=== PATIENT | male | born 1975 | race Caucasian/White ===

== ENCOUNTER → 2017-01-19 | Outpatient (CLI) | payer BC ==
[~2017-01-19] VITALS: Ht 188 cm; Wt 81.6 kg
[~2017-01-19] MED LIST: ENSURE113 GM PO; PREDNISONE 10 M10 MG PO
[2017-01-19 10:44] LABS: HEMOGLOBIN 15.7 gm/dl (14.0-17.5); RED BLOOD COUNT 4.68 M/UL (4.20-5.50); WHITE BLOOD COUNT 7.9 K/UL (4.5-11.0)
[2017-01-19 11:02] LABS: BUN/CREATININE RATIO 17 (0-10)
== END ==
LOC: OPSV 10:00
PROVIDERS: Internal Medicine Gastroenterology
DX: K51.90 Ulcerative colitis, unspecified, without complications (principal)
CPT/HCPCS: 36415; 80053; 85025; 86140; 96375; 96413; 96415; J1720; J1745; Q0163

== ENCOUNTER → 2017-03-14 | Outpatient (CLI) | payer BC ==
[~2017-03-14] VITALS: Ht 188 cm; Wt 81.6 kg
[2017-03-14 14:16] LABS: HEMOGLOBIN 15.7 gm/dl (14.0-17.5); RED BLOOD COUNT 4.73 M/UL (4.20-5.50); WHITE BLOOD COUNT 5.7 K/UL (4.5-11.0)
[2017-03-14 14:45] LABS: BUN/CREATININE RATIO 24 (0-10)
== END ==
LOC: OPSV 12:58
PROVIDERS: Internal Medicine Gastroenterology
DX: K51.90 Ulcerative colitis, unspecified, without complications (principal)
CPT/HCPCS: 36415; 80053; 85025; 86140; 96375; 96413; 96415; J1720; J1745; Q0163

== ENCOUNTER → 2020-11-04 | Outpatient (CLI) | payer BC, OTHER ==
[~2020-11-04] MED LIST changes: +ASPIRIN EC81 MG PO; +CLARITIN10 M2 PO; +CLINDAMYCIN HC300 MG PO; +DECADRON0.5 MG PO; +DEXAMETHASONE0.5 M1 PO; +DOXYCYCLINE HY100 MG PO; +ELIQUIS5 MG PO; +FERROUS SULFAT325 MG PO; +FISH OIL 1,0001 EAC1 PO; +FLORINEF 0.1 M0.1 MG PO; +FOLIC ACID1 MG PO; +FUROSEMIDE20 MG PO; +HYDROCODON-ACE1 EAC4 PO; +K-DUR TAB 10 M10 MEQ PO; +KEFLEX CAP 500500 MG PO; +LEVOFLOXACIN500 MG PO; +LOPRESSOR 25 MG25 MG PO; +METHOTREXA25 MG/1 M4 INJ; +MIDODRINE HCL5 MG PO; +ONDANSETRON ODT4 MG PO; +PAIN RELIEVER325 MG PO; +PROAMATINE 2.52.5 MG PO; +SIMPONI100 MG/11 SQ; +STELARA90 MG/1 ML SQ; +VALACYCLOVIR1000 MG PO; +VITAMIN D21250 MCG PO; +VITAMIN D31250 MCG PO; +XELJANZ10 MG PO; +[UNRECOGNIZED DRUG - OTHER]
== END ==
LOC: HEART 5 09:14
DX: I49.3 Ventricular premature depolarization (principal); I50.42 Chronic combined systolic (congestive) and diastolic (congestive) heart failure; I42.0 Dilated cardiomyopathy; R06.02 Shortness of breath; I08.1 Rheumatic disorders of both mitral and tricuspid valves; R93.1 Abnormal findings on diagnostic imaging of heart and coronary circulation
CPT/HCPCS: 93306

== ENCOUNTER → 2020-11-10 | Outpatient (CLI) | payer BC, OTHER ==
[2020-11-10 11:27] LABS: RED BLOOD COUNT 4.97 M/UL (4.20-5.50); WHITE BLOOD COUNT 11.8 K/UL (4.5-11.0)
[2020-11-10 12:27] LABS: BUN/CREATININE RATIO 21 (0-10)
== END ==
LOC: LAB 10:44
PROVIDERS: Internal Medicine Gastroenterology
DX: K51.90 Ulcerative colitis, unspecified, without complications (principal)
CPT/HCPCS: 36415; 80053; 85025; 86140

== ENCOUNTER → 2021-01-26 | Outpatient (CLI) | payer BC, OTHER | LOC: EXRD 08:47 | DX: I20.8 Other forms of angina pectoris (principal); I47.2 Ventricular tachycardia; R06.02 Shortness of breath; R91.8 Other nonspecific abnormal finding of lung field | CPT/HCPCS: 71046 ==

== ENCOUNTER → 2021-01-28 | Outpatient (CLI) | payer BC, OTHER | LOC: CATH 08:25 | DX: R06.02 Shortness of breath (principal); I20.8 Other forms of angina pectoris; I47.2 Ventricular tachycardia; Z20.822 Contact with and (suspected) exposure to COVID-19 | CPT/HCPCS: 99152; C1769; C1894; J1644; J2250; J3010; J7030; Q9967 ==

== ENCOUNTER → 2021-02-11 | Outpatient (CLI) | payer BC, OTHER ==
[2021-02-11 12:05] LABS: HEMOGLOBIN 15.7 gm/dl (14.0-17.5); RED BLOOD COUNT 5.22 M/UL (4.20-5.50); WHITE BLOOD COUNT 10.8 K/UL (4.5-11.0)
[2021-02-11 12:22] LABS: BUN/CREATININE RATIO 14 (0-10)
== END ==
LOC: LAB 10:59
PROVIDERS: Internal Medicine Gastroenterology
DX: K51.90 Ulcerative colitis, unspecified, without complications (principal); T38.0X5A Adverse effect of glucocorticoids and synthetic analogues, initial encounter
CPT/HCPCS: 80053; 83993; 85025; 86140

== ENCOUNTER → 2021-02-24 | Outpatient (CLI) | payer BC, OTHER | LOC: KOH-I 11:23 | DX: R05 Cough (principal); R06.00 Dyspnea, unspecified | CPT/HCPCS: 71046 ==

== ENCOUNTER → 2021-02-28 | Outpatient (CLI) | payer BC, OTHER ==
[2021-03-03 05:09] LABS: QUANTIFERON MITOGEN VALUE >10.00 IU/mL (.); QUANTIFERON-TB GOLD PLUS Negative (Negative)
== END ==
LOC: LAB 14:45
PROVIDERS: Internal Medicine Gastroenterology
DX: K51.90 Ulcerative colitis, unspecified, without complications (principal)
CPT/HCPCS: 36415; 84478

== ENCOUNTER 2021-03-01 17:18 | Observation (INO) | payer BC, OTHER ==
[~2021-03-01] VITALS: Ht 188 cm; Wt 89.4 kg
[~2021-03-01 17:18] MED LIST changes: -CLARITIN10 M2 PO; -CLINDAMYCIN HC300 MG PO; -HYDROCODON-ACE1 EAC4 PO; -K-DUR TAB 10 M10 MEQ PO; -LEVOFLOXACIN500 MG PO; -MIDODRINE HCL5 MG PO; -ONDANSETRON ODT4 MG PO; -PAIN RELIEVER325 MG PO; -XELJANZ10 MG PO
[2021-03-01 18:30] LABS: HEMOGLOBIN 14.5 gm/dl (14.0-17.5); RED BLOOD COUNT 4.42 M/UL (4.20-5.50); WHITE BLOOD COUNT 8.9 K/UL (4.5-11.0)
[2021-03-01 19:05] LABS: BUN/CREATININE RATIO 14 (0-10)
[2021-03-02] MEDS ORDERED: CLARITIN10 M2 PO (16:37)
== END 2021-03-02 16:38 | disposition home or self-care (01) ==
LOC: ER1 17:18 → CDU 19:32 → PROG CARE 03-02 14:28
PROVIDERS: Emergency Medicine; ADMIT Internal Medicine
DX: R07.89 Other chest pain (principal); R09.02 Hypoxemia; I49.3 Ventricular premature depolarization; K51.90 Ulcerative colitis, unspecified, without complications; I42.8 Other cardiomyopathies; I11.0 Hypertensive heart disease with heart failure; I50.22 Chronic systolic (congestive) heart failure; Z20.822 Contact with and (suspected) exposure to COVID-19; Z86.718 Personal history of other venous thrombosis and embolism; Z79.01 Long term (current) use of anticoagulants; Z79.52 Long term (current) use of systemic steroids; Z79.899 Other long term (current) drug therapy; Z95.5 Presence of coronary angioplasty implant and graft; Z88.0 Allergy status to penicillin
CPT/HCPCS: ECHO; 70491; 71045; 71275; 80053; 80061; 82550; 82553; 83874; 83880; 84439; 84443; 84484; 85025; 93005; 93306; 99285; G0378; Q9963; Q9967; U0002

== ENCOUNTER → 2021-03-22 | Outpatient (CLI) | payer BC, OTHER ==
[~2021-03-22] MED LIST changes: +CLARITIN10 M2 PO; +CLINDAMYCIN HC300 MG PO; +HYDROCODON-ACE1 EAC4 PO; +K-DUR TAB 10 M10 MEQ PO; +LEVOFLOXACIN500 MG PO; +MIDODRINE HCL5 MG PO; +ONDANSETRON ODT4 MG PO; +PAIN RELIEVER325 MG PO; +XELJANZ10 MG PO
== END ==
LOC: HEART 5 12:44
DX: I50.42 Chronic combined systolic (congestive) and diastolic (congestive) heart failure (principal)
CPT/HCPCS: 78472; A9560

== ENCOUNTER → 2021-05-04 | Outpatient (CLI) | payer BC ==
[2021-05-04 09:23] LABS: HEMOGLOBIN 14.1 gm/dl (14.0-17.5); RED BLOOD COUNT 4.58 M/UL (4.20-5.50); WHITE BLOOD COUNT 6.9 K/UL (4.5-11.0)
[2021-05-04 09:47] LABS: BUN/CREATININE RATIO 13 (0-10)
== END ==
LOC: LAB 08:16
PROVIDERS: Internal Medicine Cardiovascular Disease
DX: I50.22 Chronic systolic (congestive) heart failure (principal); I42.0 Dilated cardiomyopathy; R00.2 Palpitations; R06.02 Shortness of breath
CPT/HCPCS: 36415; 80048; 85025; J7050

== ENCOUNTER 2021-05-06 07:14 | Outpatient (CLI) | payer BC ==
[~2021-05-06] VITALS: Ht 188 cm; Wt 89.8 kg
[~2021-05-06 07:14] MED LIST changes: -CLINDAMYCIN HC300 MG PO; -HYDROCODON-ACE1 EAC4 PO; -K-DUR TAB 10 M10 MEQ PO; -LEVOFLOXACIN500 MG PO; -MIDODRINE HCL5 MG PO; -ONDANSETRON ODT4 MG PO; -PAIN RELIEVER325 MG PO; -XELJANZ10 MG PO
[2021-05-06] MEDS ORDERED: ONDANSETRON ODT4 MG PO (08:27)
[2021-05-06] MEDS ORDERED: XELJANZ10 MG PO (08:31)
[2021-05-06] MEDS ORDERED: HYDROCODON-ACE1 EAC4 PO (11:36)
[2021-05-06] MEDS ORDERED: LEVOFLOXACIN500 MG PO (11:36)
[2021-05-06] MEDS ORDERED: CLINDAMYCIN HC300 MG PO (11:36)
[2021-05-07] MEDS ORDERED: PAIN RELIEVER325 MG PO (09:20)
[2021-05-08] MEDS ORDERED: K-DUR TAB 10 M10 MEQ PO (14:56)
[2021-05-08] MEDS ORDERED: MIDODRINE HCL5 MG PO (14:56)
[2021-05-08] MEDS ORDERED: FUROSEMIDE20 MG PO (14:56)
[2021-05-08] MEDS ORDERED: LEVOFLOXACIN500 MG PO ×2 (15:01→15:06)
== END 2021-05-07 10:04 | disposition home or self-care (01) ==
LOC: CATH 07:14 → PROG CARE 13:31 → CATH 05-07 10:04
DX: I42.0 Dilated cardiomyopathy (principal); I50.42 Chronic combined systolic (congestive) and diastolic (congestive) heart failure; I47.2 Ventricular tachycardia; I49.3 Ventricular premature depolarization; K51.90 Ulcerative colitis, unspecified, without complications; K21.9 Gastro-esophageal reflux disease without esophagitis; Z88.0 Allergy status to penicillin; Z79.01 Long term (current) use of anticoagulants; Z79.82 Long term (current) use of aspirin; Z79.899 Other long term (current) drug therapy
CPT/HCPCS: 33270; 71045; 82962; 93644; 99152; 99153; C1722; C1896; J0461; J1200; J1644; J2250; J2270; J2550; J3010; J3370; J7040; J7050; J7070

== ENCOUNTER 2021-05-07 10:12 | Observation (INO) | payer BC ==
[~2021-05-07] VITALS: Ht 188 cm; Wt 88.5 kg
[~2021-05-07 10:12] MED LIST changes: +CLINDAMYCIN HC300 MG PO; +HYDROCODON-ACE1 EAC4 PO; +LEVOFLOXACIN500 MG PO; +ONDANSETRON ODT4 MG PO; +PAIN RELIEVER325 MG PO; +XELJANZ10 MG PO
[2021-05-07 11:22] LABS: HEMOGLOBIN 14.2 gm/dl (14.0-17.5); RED BLOOD COUNT 4.6 M/UL (4.20-5.50); WHITE BLOOD COUNT 8.5 K/UL (4.5-11.0)
[2021-05-07 12:34] LABS: BUN/CREATININE RATIO 9 (0-10)
[2021-05-08 05:26] LABS: HEMOGLOBIN 13.7 gm/dl (14.0-17.5); RED BLOOD COUNT 4.47 M/UL (4.20-5.50); WHITE BLOOD COUNT 8.2 K/UL (4.5-11.0)
[2021-05-08 05:46] LABS: BUN/CREATININE RATIO 7 (0-10)
[2021-05-08] MEDS ORDERED: K-DUR TAB 10 M10 MEQ PO (14:56)
[2021-05-08] MEDS ORDERED: FUROSEMIDE20 MG PO (14:56)
[2021-05-08] MEDS ORDERED: MIDODRINE HCL5 MG PO (14:56)
[2021-05-08] MEDS ORDERED: LEVOFLOXACIN500 MG PO ×2 (15:01→15:06)
== END 2021-05-08 16:37 | disposition home or self-care (01) ==
LOC: ER1 10:12 → CDU 15:31 → MED SURG 4 21:09
PROVIDERS: Emergency Medicine; Physician Assistant; ADMIT Internal Medicine
DX: R55 Syncope and collapse (principal); I95.89 Other hypotension; I50.22 Chronic systolic (congestive) heart failure; I42.0 Dilated cardiomyopathy; I49.3 Ventricular premature depolarization; R94.31 Abnormal electrocardiogram [ECG] [EKG]; J98.2 Interstitial emphysema; J45.909 Unspecified asthma, uncomplicated; I80.00 Phlebitis and thrombophlebitis of superficial vessels of unspecified lower extremity; E87.6 Hypokalemia; Z79.01 Long term (current) use of anticoagulants; Z79.899 Other long term (current) drug therapy; Z20.822 Contact with and (suspected) exposure to COVID-19; Z88.0 Allergy status to penicillin; Z95.810 Presence of automatic (implantable) cardiac defibrillator; Z86.718 Personal history of other venous thrombosis and embolism; Z86.19 Personal history of other infectious and parasitic diseases
CPT/HCPCS: 70450; 71045; 80048; 80053; 80202; 82550; 82553; 83874; 83880; 84484; 85025; 85379; 87040; 93005; 96374; 96375; 96376; 99285; G0378; J2185; J3370; J7070; U0002

== ENCOUNTER → 2021-05-23 | Outpatient (CLI) | payer BC ==
[~2021-05-23] MED LIST changes: +K-DUR TAB 10 M10 MEQ PO; +MIDODRINE HCL5 MG PO
== END ==
LOC: LAB 11:02
DX: R19.7 Diarrhea, unspecified (principal)
CPT/HCPCS: 83993; 87449

== ENCOUNTER → 2021-09-01 | Outpatient (CLI) | payer BC ==
[2021-09-01 13:05] LABS: HEMOGLOBIN 17.8 gm/dl (14.0-17.5); RED BLOOD COUNT 5.79 M/UL (4.20-5.50); WHITE BLOOD COUNT 7.8 K/UL (4.5-11.0)
[2021-09-01 13:30] LABS: BUN/CREATININE RATIO 17 (0-10)
== END ==
LOC: LAB 11:44
PROVIDERS: Internal Medicine Gastroenterology
DX: K51.919 Ulcerative colitis, unspecified with unspecified complications (principal)
CPT/HCPCS: 36415; 80053; 85025; 86140

== ENCOUNTER 2021-12-29 10:54 | Emergency (ER) | payer BC ==
[2021-12-29 11:35] LABS: HEMOGLOBIN 17.8 gm/dl (14.0-17.5); RED BLOOD COUNT 5.85 M/UL (4.20-5.50); WHITE BLOOD COUNT 6.7 K/UL (4.5-11.0)
[2021-12-29 12:02] LABS: BUN/CREATININE RATIO 23 (0-10)
== END 2021-12-29 15:25 | disposition home or self-care (01) ==
LOC: ER1 10:54
PROVIDERS: Emergency Medicine
DX: R07.9 Chest pain, unspecified (principal); I50.9 Heart failure, unspecified; R55 Syncope and collapse; Z88.0 Allergy status to penicillin; Z79.01 Long term (current) use of anticoagulants
CPT/HCPCS: 71045; 80053; 82550; 82553; 84484; 85025; 93005; 99285; Q9967

== ENCOUNTER → 2022-04-26 | Outpatient (CLI) | payer BC | LOC: LAB 10:31 | DX: K51.019 Ulcerative (chronic) pancolitis with unspecified complications (principal) | CPT/HCPCS: 36415; 82728; 83540; 83550 ==

== ENCOUNTER → 2022-06-01 | Outpatient (CLI) | payer BC ==
[~2022-06-01] MED LIST changes: +BUDESONIDE ER9 MG PO; +LIPITOR TAB 1010 MG PO; +MULTAQ 400 MG400 MG PO; +MYSOLINE50 MG PO; +VAZALORE81 MG PO; +VITAMIN D3125 MCG PO; +ZEPOSIA0.92 MG PO; +ZOFRAN 4 MG TAB4 MG PO
[2022-06-01 08:16] LABS: RED BLOOD COUNT 5.08 M/UL (4.20-5.50); WHITE BLOOD COUNT 6.1 K/UL (4.5-11.0)
[2022-06-01 08:32] LABS: BUN/CREATININE RATIO 15 (0-10)
== END | disposition home or self-care (01) ==
LOC: CATH 06:57
PROVIDERS: Internal Medicine Cardiovascular Disease
DX: I48.19 Other persistent atrial fibrillation (principal); I50.42 Chronic combined systolic (congestive) and diastolic (congestive) heart failure; I42.0 Dilated cardiomyopathy; E78.5 Hyperlipidemia, unspecified; K21.9 Gastro-esophageal reflux disease without esophagitis; Z86.718 Personal history of other venous thrombosis and embolism; Z79.01 Long term (current) use of anticoagulants; Z79.82 Long term (current) use of aspirin; Z79.899 Other long term (current) drug therapy; Z88.0 Allergy status to penicillin
CPT/HCPCS: 36415; 80048; 85027; 92960; 93005; J1200; J1742; J2250; J2310; J3010; J7040

== ENCOUNTER → 2022-06-08 | Outpatient (CLI) | payer BC ==
[2022-06-08 10:46] LABS: HEMOGLOBIN 18.4 gm/dl (14.0-17.5); RED BLOOD COUNT 5.75 M/UL (4.20-5.50); WHITE BLOOD COUNT 6.1 K/UL (4.5-11.0)
[2022-06-08 11:08] LABS: BUN/CREATININE RATIO 13 (0-10)
== END ==
LOC: LAB 09:48
PROVIDERS: Nurse Practitioner Family
DX: E78.5 Hyperlipidemia, unspecified (principal); I50.9 Heart failure, unspecified; E55.9 Vitamin D deficiency, unspecified
CPT/HCPCS: 36415; 80053; 80061; 82607; 84439; 84443; 85025